=== PATIENT | male | born 1965 | race Caucasian/White ===

== ENCOUNTER 2016-07-25 18:17 | Emergency (ER) ==
[2016-07-25] MEDS ORDERED: MORPHINE 2 MG/ML SYRINGE IVP STA ×2 (18:34→18:51)
[2016-07-25] MEDS: NITROSTAT SL PRN ×5 (18:35→19:35)
[2016-07-25 18:37] VITALS: TEMP 99.4; BMI 30.4
--- NOTE | 2016-07-25 18:37 | ED.PDOC ---
General ED Provider: Dr. MARIELY LIGHT JR Chief Complaint: Chest Pain Stated Complaint: pain for 30 minutes sudden pressure one prior episode worked up no significant findings did have a cath 4-5 years ago at [facility], this episode began on 07/23 initially right inguinial pain pressure then pain pressure typel in left chest and shoulder- resolved, appointment withPMD for today- misscheduled not seen, pain recurrent 30 minutes prior to arrival left side pressure with nausea sweats radiation ot left arm still smokes Time Seen by Physician: 18:35 Mode of Arrival: Walk-In Information Source: Patient Exam Limitations: No limitations Nursing and Triage Documentation Reviewed and Agree: No Review of Systems - Review Of Systems Constitutional: Reports: Diaphoresis, Malaise Eyes: Reports: No symptoms Ears, Nose, Mouth, Throat: Reports: No symptoms Respiratory: Reports: No symptoms Cardiac: Reports: Chest pain GI: Reports: No symptoms : Reports: No symptoms Musculoskeletal: Reports: No symptoms Skin: Reports: No symptoms Neurological: Reports: Anxiety Endocrine: Reports: No symptoms Hematologic/Lymphatic: Reports: No symptoms All Other Systems: Other Past Medical History - Past Medical History Previously Healthy: Yes Endocrine: Reports: None Cardiovascular: Reports: Hypertension, Angina Respiratory: Reports: None Hematological: Reports: None Gastrointestinal: Reports: None Genitourinary: Reports: None Neuro/Psych: Reports: Anxiety Musculoskeletal: Reports: None Cancer: Reports: None - Surgical History General Surgical History: Reports: Hernia Repair - Family History Family History: Reports: Unknown - Social History Smoking Status: Current some day smoker Hx Substance Use: No Alcohol Screening: Occasionally - Immunizations Tetanus Shot up to Date: Yes Physical Exam - Physical Exam Appearance: Ill-appearing Ill-appearing: Moderate Pain Distress: Moderate ENT: Ears normal, Nose normal, Oropharynx normal Neck: Supple Respiratory: Airway patent, Breath sounds clear, Breath sounds equal, Respirations nonlabored, Rhonchi Cardiovascular: RRR, Tachycardia GI/: Soft Musculoskeletal: Normal strength, ROM intact, No edema, No calf tenderness Skin: Warm, Diaphoretic Neurological: Sensation intact, Motor intact, Reflexes intact, Alert, Oriented Psychiatric: Affect appropriate, Anxious Interpretation - EKG Interpretation Time of EKG #1: 18:35 Rate: Tachy (117) Rhythm: Sinus Ectopy: None Termo: NL ST Segment: Normal Re-Evaluation - Re-Evaluation Time of Re-Evaluation: 19:38 (states pain now 6/10 again) Status: Improved Physician Notification - Case Discussed Physician Notified: ER DR SHAR ISLAS Time of Notification: 19:45 (ACCEPT ACS) Critical Care Note - Critical Care Note Total Time (mins): 90 Course - Course Hematology/Chemistry: 07/25/16 18:30 07/25/16 18:30 Orders, Labs, Meds: Lab Review 07/25/16 18:30 WBC 11.12 H RBC 4.76 Hgb 16.1 Hct 45.8 MCV 96.2 H MCH 33.8 H MCHC 35.2 RDW Coeff of Rafiq 12.1 Plt Count 217 Immature Gran % (Auto) 0.4 Neut % (Auto) 63.0 Lymph % (Auto) 26.8 [place] % (Auto) 5.8 Eos % (Auto) 3.3 Baso % (Auto) 0.7 Immature Gran # (Auto) 0.0 Neut # 7.0 H Lymph # 3.0 [place] # 0.7 Eos # 0.4 Baso # 0.1 D-Dimer < 0.19 L Sodium 139 Potassium 4.1 Chloride 106 Carbon Dioxide 21 Anion Gap 16.1 BUN 12 Creatinine 1.05 Estimated GFR (MDRD) 74.00 BUN/Creatinine Ratio 11.42 Glucose 140 H Calcium 9.2 Total Bilirubin 0.31 AST 17 ALT 20 Alkaline Phosphatase 111 Total Creatine Kinase 58 Troponin I < 0.0100 B-Natriuretic Peptide 14 Total Protein 7.1 Albumin 3.9 Globulin 3.2 Albumin/Globulin Ratio 1.22 Orders Category Date Time Status EKG-(ED ONLY) Stat CARDIO 07/25/16 18:34 Completed ED VP EMERGING MEDIA APPLIED .ONCE EMERGENCY 07/25/16 18:34 Active ED IV/MEDIPORT/POWERPORT .ONCE EMERGENCY 07/25/16 18:34 Active B-TYPE NATRIURETIC PEPTIDE Stat LAB 07/25/16 18:30 Completed CBC W/ AUTO DIFF Stat LAB 07/25/16 18:30 Completed COMPREHENSIVE METABOLIC PANEL Stat LAB 07/25/16 18:30 Completed CREATINE KINASE Stat LAB 07/25/16 18:30 Completed D-DIMER Stat LAB 07/25/16 18:30 Completed TROPONIN I Stat LAB 07/25/16 18:30 Completed UA [URINALYSIS C & S IF INDICATED] Stat LAB 07/25/16 19:38 Uncollected 0.9 % Sodium Chloride [Saline Flush] MEDS 07/25/16 18:34 Ordered 1 syr IVF PRN PRN Aspirin [Aspirin Chewable] MEDS 07/25/16 18:35 Discontinued 324 mg .ROUTE .STK-MED ONE Aspirin [Aspirin Chewable] MEDS 07/25/16 18:51 Discontinued 324 mg PO ONCE STA Dextrose 5 % in Water [Premix D5w 250 ml Vial] 1 vial MEDS 07/25/16 19:30 Ordered Nitroglycerin/D5w [Nitroglycerin] 25 mg IV 10 mcg/min Lorazepam Inj [Ativan] MEDS 07/25/16 19:06 Discontinued 1 mg IVP ONCE STA Lorazepam Inj [Ativan] MEDS 07/25/16 19:34 Discontinued 1 mg IVP ONCE STA Lorazepam Inj [Ativan] MEDS 07/25/16 19:08 Discontinued 2 mg .ROUTE .STK-MED ONE Lorazepam Inj [Ativan] MEDS 07/25/16 19:42 Discontinued 2 mg IVP ONCE STA Morphine Sulfate [Morphine 2 mg/ml Syringe] MEDS 07/25/16 18:34 Discontinued 2 mg IVP ONCE STA Morphine Sulfate [Morphine 2 mg/ml Syringe] MEDS 07/25/16 18:51 Discontinued 2 mg IVP ONCE STA Nitroglycerin [Nitrostat] MEDS 07/25/16 18:34 Ordered 0.4 mg SL Q5MIN X 3 DOSES PRN Nitroglycerin [Nitrostat] MEDS 07/25/16 19:06 Ordered 0.4 mg SL Q5MIN X 3 DOSES PRN Nitroglycerin/D5w [Nitroglycerin] 250 ml MEDS 07/25/16 19:32 Discontinued IV .STK-MED Ondansetron HCl/Pf [Zofran 4 mg/2 ml] MEDS 07/25/16 18:41 Discontinued 4 mg .ROUTE .STK-MED ONE Ondansetron HCl/Pf [Zofran 4 mg/2 ml] MEDS 07/25/16 18:41 Discontinued 4 mg IVP ONCE STA CHEST, 1V AP ONLY Stat RADS 07/25/16 18:34 Completed Medications Generic Name Dose Route Start Last Admin Trade Name Freq PRN Reason Stop Dose Admin Nitroglycerin/Dextrose 25 mg/ 250 mls @ 6 mls/hr 07/25/16 19:30 07/25/16 19: 58 DEXTROSE 5 % IN WATER IV 20 mcg/min .Q24H PERNELL 12 mls/hr Protocol Titration 10 MCG/MIN Nitroglycerin 0.4 mg 07/25/16 18:34 07/25/16 19:35 Nitrostat SL 0.4 mg Q5MIN X 3 DOSES PRN Administration Chest Pain Nitroglycerin 0.4 mg 07/25/16 19:06 Nitrostat SL Q5MIN X 3 DOSES PRN Chest Pain Sodium Chloride 1 syr 07/25/16 18:34 Saline Flush IVF PRN PRN To flush IV Discontinued Medications Generic Name Dose Route Start Last Admin Trade Name Freq PRN Reason Stop Dose Admin Aspirin 324 mg 07/25/16 18:51 07/25/16 19:01 Aspirin Chewable PO 07/25/16 18:52 324 mg ONCE STA Administration Lorazepam 1 mg 07/25/16 19:06 07/25/16 19:11 Ativan IVP 07/25/16 19:07 1 mg ONCE STA Administration Lorazepam 1 mg 07/25/16 19:34 Ativan IVP 07/25/16 19:35 ONCE STA Lorazepam 2 mg 07/25/16 19:42 Ativan IVP 07/25/16 19:43 ONCE STA Morphine Sulfate 2 mg 07/25/16 18:34 07/25/16 18:50 Morphine 2 Mg/Ml Syringe IVP 07/25/16 18:35 2 mg ONCE STA Administration Morphine Sulfate 2 mg 07/25/16 18:51 07/25/16 18:50 Morphine 2 Mg/Ml Syringe IVP 07/25/16 18:52 2 mg ONCE STA Administration Ondansetron HCl 4 mg 07/25/16 18:41 07/25/16 18:38 Zofran 4 Mg/2 Ml IVP 07/25/16 18:42 4 mg ONCE STA Administration Vital Signs: Temp Pulse Resp BP Pulse Ox 07/25/16 19:58 84 16 135/81 07/25/16 19:33 90 22 133/97 H 07/25/16 18:26 99.4 F 115 H 26 H 117/99 H 99 MITCHEL Risk Score MITCHEL Risk Score: Risk Score Odds of by 30D 0 0.1 (0.1-0.2) 1 0.3 (0.2-0.3) 2 0.4 (0.3-0.5) 3 0.7 (0.6-0.9) 4 1.2 (1.0-1.5) 5 2.2 (1.9-2.6) 6 3.0 (2.5-3.6) 7 4.8 (3.8-6.1) Departure - Departure Time of Disposition: 19:46 Disposition: TSF SHORT-TRM HOSP Discharge Problem: Chest pain Instructions: Chest Pain (ED), Angina (ED) Condition: Serious Pt referred to PMD for follow-up: No (transfer to [facility])
[2016-07-25] MEDS ORDERED: NITROSTAT SL ONE (18:39)
[2016-07-25] MEDS ORDERED: ZOFRAN 4 MG/2 ML ONE (18:41)
[2016-07-25] MEDS ORDERED: ZOFRAN 4 MG/2 ML IVP STA (18:41)
[2016-07-25 18:44] LABS: BASOPHILS # (AUTO) 0.1 K/uL (0-0.2); BASOPHILS % (AUTO) 0.7 % (0.0-3.0); EOSINOPHILS # (AUTO) 0.4 K/ul (0.0-0.7); EOSINOPHILS % (AUTO) 3.3 % (0.0-7.0); HEMATOCRIT 45.8 % (42.0-52.0); HEMOGLOBIN 16.1 g/dl (14.0-18.0); IMMATURE GRANULOCYTE % (AUTO) 0.4 % (0.0-5.0); LYMPHOCYTES % (AUTO) 26.8 (10.0-50.0); MEAN CORPUSCULAR HEMOGLOBIN 33.8 pg (27.0-31.0); MEAN CORPUSCULAR HGB CONC 35.2 (31.8-35.4); MEAN CORPUSCULAR VOLUME 96.2 fl (80.0-94.0); MONOCYTES # (AUTO) 0.7 K/uL (0.4-2.0); MONOCYTES % (AUTO) 5.8 (0-10); PLATELET COUNT 217 10^3/uL (140-440); RED BLOOD COUNT 4.76 10^6/ul (4.70-6.10); WHITE BLOOD COUNT 11.12 K/ul (4.2-10.2)
[2016-07-25] MEDS ORDERED: ASPIRIN CHEWABLE PO STA (18:51)
[2016-07-25] MEDS: ASPIRIN CHEWABLE ONE ×2 (18:58→19:56)
[2016-07-25 19:04] LABS: ALANINE AMINOTRANSFERASE 20 U/L (12-78); ALBUMIN 3.9 g/dL (3.4-5.0); ALBUMIN/GLOBULIN RATIO 1.22; ALKALINE PHOSPHATASE 111 U/L (50-136); ANION GAP 16.1; ASPARTATE AMINO TRANSFERASE 17 U/L (15-37); BILIRUBIN,TOTAL 0.31 mg/dL (0.00-1.20); BLOOD UREA NITROGEN 12 mg/dL (7-18); BUN/CREATININE RATIO 11.42; CALCIUM 9.2 mg/dL (8.2-10.2); CARBON DIOXIDE 21 mmol/L (21-32); CHLORIDE 106 mmol/L (98-107); CREATINE KINASE 58 U/L; CREATININE 1.05 mg/dL (0.60-1.10); GLUCOSE 140 mg/dL (70-100); POTASSIUM 4.1 mmol/L (3.5-5.1); SODIUM 139 mmol/L (136-145); TOTAL PROTEIN 7.1 g/dL (6.4-8.2)
[2016-07-25] MEDS ORDERED: ATIVAN IVP STA ×3 (19:06→19:42)
[2016-07-25] MEDS ORDERED: NITROSTAT SL PRN (19:06)
[2016-07-25] MEDS ORDERED: ATIVAN ONE (19:08)
--- NOTE | 2016-07-25 19:24 | DI ---
Exam: Single view chest x-ray. Date: 07/25/2016. Comparison: None. HISTORY: Chest pain. FINDINGS: The osseous structures are normal. The lungs are clear. The cardiac silhouette and pulm onary vasculature are within normal limits. Impression: No acute intrathoracic findings.
[2016-07-25] MEDS ORDERED: NITROGLYCERIN 25 MG in PREMIX D5W 250 ML VIAL 1 VIAL IV SCH (19:30)
[2016-07-25] MEDS ORDERED: NITROGLYCERIN 250 ML IV ONE (19:32)
[2016-07-25 19:59] VITALS: BP 135/81
== END 2016-07-25 21:00 | disposition short-term general hospital (02) ==
LOC: ED 18:17
DX: R07.9 Chest pain, unspecified (principal); I20.9 Angina pectoris, unspecified; I10 Essential (primary) hypertension; R00.0 Tachycardia, unspecified; F17.210 Nicotine dependence, cigarettes, uncomplicated
CPT/HCPCS: 36415; 80053; 82550; 83880; 84484; 85025; 85379; 93005; 93010; 96365; 96366; 96375; 96376; 99285

== ENCOUNTER 2016-07-25 21:06 | Outpatient (CLI) ==
[2016-07-25 18:37] VITALS: BMI 30.4
== END 2016-07-25 23:55 ==
LOC: AMBL 21:06
PROVIDERS: ATTEND Emergency Medicine
DX: R07.9 Chest pain, unspecified (principal)

== ENCOUNTER 2016-09-29 22:52 | Outpatient (CLI) | END 2016-09-29 22:53 | disposition home or self-care (01) | LOC: AMBL 22:52 | PROVIDERS: ATTEND Family Medicine | DX: R07.9 Chest pain, unspecified (principal); I25.2 Old myocardial infarction ==

== ENCOUNTER 2017-08-07 19:53 | Outpatient (CLI) | END 2017-08-07 19:54 | disposition short-term general hospital (02) | LOC: AMBL 19:53 | PROVIDERS: ATTEND Internal Medicine Geriatric Medicine | DX: R07.9 Chest pain, unspecified (principal); I25.2 Old myocardial infarction ==